=== PATIENT | male | born 1955 | race Caucasian/White ===

== ENCOUNTER → 2020-04-08 | Outpatient (CLI) | payer OTHER ==
[~2020-04-08] MED LIST: BUPR150T6 PO; LOSA100T14 PO; METO25TA91 PO; PANT40TA5 PO; TERA2CAP3 PO; TRAZ-175 PO; ZOLP10TA PO
== END | disposition home or self-care (01) ==
LOC: CFH 08:16
PROVIDERS: ATTEND Nurse Practitioner Family
DX: M51.36 Other intervertebral disc degeneration, lumbar region (principal); I70.0 Atherosclerosis of aorta; M25.78 Osteophyte, vertebrae
CPT/HCPCS: 72110

== ENCOUNTER 2020-07-05 11:42 | Outpatient (CLI) | payer OTHER, MEDICARE ==
[~2020-07-05 11:42] MED LIST changes: -PANT40TA5 PO; +PANT40TA6 PO
[2020-07-05] MEDS ORDERED: OMNIPAQUE 350 MG/ML, 100ML BOTTLE ONE (13:39)
== END 2020-07-05 23:59 | disposition home or self-care (01) ==
LOC: RAD 11:42
PROVIDERS: ATTEND Urology
DX: K57.30 Diverticulosis of large intestine without perforation or abscess without bleeding (principal); N28.89 Other specified disorders of kidney and ureter; M51.36 Other intervertebral disc degeneration, lumbar region; Q79.1 Other congenital malformations of diaphragm
CPT/HCPCS: 74170; Q9967

== ENCOUNTER → 2020-07-29 | Outpatient (CLI) | payer MEDICARE ==
[~2020-07-29] MED LIST changes: +TRAZODONE PO
== END | disposition home or self-care (01) ==
LOC: STAR 15:38
PROVIDERS: ATTEND Anesthesiology
DX: Z20.828 Contact with and (suspected) exposure to other viral communicable diseases (principal)
CPT/HCPCS: 87635

== ENCOUNTER 2020-08-12 08:29 | Outpatient (CLI) | payer MEDICARE | END 2020-08-12 23:59 | disposition home or self-care (01) | LOC: RAD 08:29 | PROVIDERS: ATTEND Urology | DX: N40.1 Benign prostatic hyperplasia with lower urinary tract symptoms (principal); C64.2 Malignant neoplasm of left kidney, except renal pelvis; C67.4 Malignant neoplasm of posterior wall of bladder; Z79.899 Other long term (current) drug therapy; Z90.5 Acquired absence of kidney | CPT/HCPCS: 51600; 74430; Q9958 ==

== ENCOUNTER 2020-09-06 14:28 | Emergency (ER) | payer MEDICARE ==
[~2020-09-06] VITALS: Ht 180.3 cm; Wt 96.8 kg
[~2020-09-06 14:28] MED LIST changes: -BUPR150T6 PO; +BUPR150T7 PO
--- NOTE | 2020-09-06 14:41 | NUR ---
quality reviewer: EKG done in triage
--- NOTE | 2020-09-06 15:03 | NUR ---
strong nitric operator note: Pt to room from lobby.
--- NOTE | 2020-09-06 15:36 | NUR ---
ASSUMED CARE OF PATIENT. PT REPORTS SOB AND PALPITATIONS X4 DAYS THAT COME AND GO. WORSE ON EXERTION. PT SEEN BY DR CASH. WEBFED OFFSET PRESS OPERATOR ON. NSR NOTED. VS STABLE. CALL LIGHT IN PLACE. AT BEDSIDE. WILL CONTINUE TO MONITOR.
[2020-09-06 15:43] LABS: BASOPHILS % (AUTO) 0 % (0-1); EOSINOPHILS % (AUTO) 4 % (1-7); LYMPHOCYTES % (AUTO) 15 % (22-44); MEAN CORPUSCULAR HEMOGLOBIN 31.4 pg (27.5-34.5); MEAN CORPUSCULAR HGB CONC 32.9 g/dL (33.2-36.2); MEAN PLATELET VOLUME 9.3 fL (7.4-10.4); MONOCYTES % (AUTO) 10 % (2-9); NEUTROPHILS % (AUTO) 71 % (42-75); PLATELET COUNT 187 x10^3/uL (130-400); RED BLOOD COUNT 3.99 x10^6/uL (4.38-5.82); RED CELL DISTRIBUTION WIDTH 13.7 % (9.4-14.8)
[2020-09-06 15:44] LABS: MD NO
[2020-09-06 15:48] LABS: ALBUMIN 3.8 g/dL (3.4-5.0); ANION GAP 4 mmol/L (5-15); CALCIUM 9.5 mg/dL (8.5-10.1); CHLORIDE 105 mmol/L (98-107)
[2020-09-06 15:54] LABS: TROPONIN I < 0.015 ng/mL (0.000-0.045)
--- NOTE | 2020-09-06 15:57 | NUR ---
PT WATCHING TV IN ROOM. AT BEDSIDE. VS STABLE. NO ACUTE DISTRESS NOTED. CALL LIGHT IN PLACE. WILL CONTINUE TO MONITOR.
--- NOTE | 2020-09-06 16:25 | NUR ---
DR CASH AT BEDSIDE UPDATING PATIENT.
[2020-09-06] MEDS ORDERED: SODIUM CHLORIDE 0.9% 1,000 ML IV ONE (16:30)
[2020-09-06] MEDS ORDERED: SODIUM CHLORIDE FLUSH 10ML SYR IVF ONE (16:30)
[2020-09-06] MEDS ORDERED: MAALOX/HYOSCYAMINE/LIDOCAINE 45 ML BTL ONE (16:45)
[2020-09-06] MEDS ORDERED: MAALOX/HYOSCYAMINE/LIDOCAINE 45 ML BTL PO ONE (17:30)
--- NOTE | 2020-09-06 17:50 | NUR ---
PT BACK FROM RADIOLOGY. NO ACUTE DISTRESS NOTED. AT BEDSIDE. CALL LIGHT IN PLACE. WILL CONTINUE TO MONITOR.
[2020-09-06 18:13] VITALS: BP 102/72
--- NOTE | 2020-09-06 18:13 | NUR ---
pt in room watching tv. vs table. no acute distress noted. call light in place. will continue to monitor.
--- NOTE | 2020-09-06 18:39 | NUR ---
DR CASH HAS UPDATED PATIENT. PATIENT READY FOR DC
== END 2020-09-06 18:42 | disposition home or self-care (01) ==
LOC: ED 16:51
DX: N17.9 Acute kidney failure, unspecified (principal); E86.0 Dehydration; R00.2 Palpitations; R06.00 Dyspnea, unspecified; R06.02 Shortness of breath; R00.0 Tachycardia, unspecified
CPT/HCPCS: 36415; 71045; 78598; 80048; 82040; 83880; 84484; 85025; 85379; 93005; 96360; 96361; 99285; A9540; A9558; J7030

== ENCOUNTER 2020-12-23 06:10 | Day surgery (SDC) | payer MEDICARE ==
[~2020-12-23 06:10] MED LIST changes: +BUPR150T22 PO; -BUPR150T7 PO
[2020-12-23 06:50] VITALS: BP 104/74
[2020-12-23] MEDS ORDERED: MIDAZOLAM 1 MG/ML, 5ML ONE (07:29)
[2020-12-23] MEDS ORDERED: FENTANYL PF 100 MCG/2ML ONE (07:29)
[2020-12-23] MEDS ORDERED: FLUMAZENIL 0.1 MG/1 ML, 5ML ONE (07:30)
[2020-12-23] MEDS ORDERED: NALOXONE 1 MG/ML, 2ML ONE (07:30)
[2020-12-23 07:31] LABS: INTERNATIONAL NORMALIZED RATIO 1.04 (0.93-1.1); PROTHROMBIN TIME 11.1 Seconds (9.6-11.5)
== END 2020-12-23 10:13 | disposition home or self-care (01) ==
LOC: OUT 06:10
PROVIDERS: ATTEND Internal Medicine Hematology & Oncology
DX: K76.89 Other specified diseases of liver (principal); C22.7 Other specified carcinomas of liver; M51.36 Other intervertebral disc degeneration, lumbar region; M48.061 Spinal stenosis, lumbar region without neurogenic claudication; I42.9 Cardiomyopathy, unspecified; I12.9 Hypertensive chronic kidney disease with stage 1 through stage 4 chronic kidney disease, or unspecified chronic kidney disease; N18.9 Chronic kidney disease, unspecified; Z79.899 Other long term (current) drug therapy; Z87.891 Personal history of nicotine dependence; Z90.5 Acquired absence of kidney
CPT/HCPCS: 36415; 47000; 72131; 76942; 85610; 88307; 88333; 88341; 88342; 99156; 99157; J2250; J3010; J2310

== ENCOUNTER → 2021-02-04 | Outpatient (CLI) | payer MEDICARE | END | disposition home or self-care (01) | LOC: RAD 08:49 | PROVIDERS: ATTEND Internal Medicine Hematology & Oncology | DX: C78.7 Secondary malignant neoplasm of liver and intrahepatic bile duct (principal); C65.2 Malignant neoplasm of left renal pelvis; R16.1 Splenomegaly, not elsewhere classified; N28.1 Cyst of kidney, acquired; K80.20 Calculus of gallbladder without cholecystitis without obstruction; Z90.5 Acquired absence of kidney | CPT/HCPCS: 76700 ==

== ENCOUNTER 2021-02-13 06:43 | Emergency (ER) | payer MEDICARE ==
[~2021-02-13] VITALS: Ht 180.3 cm; Wt 91.8 kg
[~2021-02-13 06:43] MED LIST changes: +HYDR-3241 PO; +HYDR-63 PO; +METH100V PO; +METO25TA35 PO; +ONDA4TAB7 PO; +OXYC10TA6 PO; +PROC10TA78 PO; +TAMS-11 PO
--- NOTE | 2021-02-13 06:56 | NUR ---
pt BIBA for chief complaint of dizziness and loss of balance, pt started chemo on thrusday for liver and bladder cancer, pt has a history of [place] and stated that he usually has abnormal EKG and is usually sinus tach, pt states he has also been constipated for the last five days, pts FS was 134 in the field, pt currently a/ox4, NAD, at bedside .
[2021-02-13] MEDS ORDERED: SODIUM CHLORIDE FLUSH 10ML SYR IVF ONE (07:00)
[2021-02-13] MEDS ORDERED: SODIUM CHLORIDE 0.9% 1,000ML IVBOLUS ONE (07:00)
[2021-02-13 07:07] LABS: MEAN PLATELET VOLUME 9.1 fL (7.4-10.4); PLATELET COUNT 239 x10^3/uL (130-400); RED BLOOD COUNT 4.22 x10^6/uL (4.38-5.82); RED CELL DISTRIBUTION WIDTH 13.4 % (9.4-14.8)
--- NOTE | 2021-02-13 07:09 | NUR ---
PT TO RADIOLOGY
--- NOTE | 2021-02-13 07:17 | NUR ---
PT BACK FROM RADIOLOGY, CONNECTED TO ALL MONITORS. CALL LIGHT WITHIN REACH. COMFORT MEASURES PROVIDED.
[2021-02-13 07:18] LABS: ALANINE AMINOTRANSFERASE 157 U/L (12-78); ALBUMIN 2.7 g/dL (3.4-5.0); ANION GAP 10 mmol/L (5-15); CALCIUM 8.5 mg/dL (8.5-10.1); CHLORIDE 104 mmol/L (98-107); CREATININE 2.54 mg/dL (0.7-1.3)
[2021-02-13 07:20] LABS: ALKALINE PHOSPHATASE 393 U/L (45-117); BILIRUBIN,TOTAL 1.4 mg/dL (0.2-1.0); TOTAL PROTEIN 7.2 g/dL (6.4-8.2)
[2021-02-13 07:32] LABS: <PLATELET ESTIMATE> ADEQUATE; <PLT MORPHOLOGY> NORMAL PLT MORPH; <RBC MORPHOLOGY> NORMAL; BANDS%(MANUAL) 1 % (0-7); LYMPH#(MANUAL) 0.21 x10^3/uL (1-3.4); LYMPHS% (MANUAL) 2 % (22-44); MONOS% (MANUAL) 1 % (2-9); SEG#(MANUAL) 9.89 x10^3/uL (1.8-6.8); SEGS% (MANUAL) 96 % (42-75)
--- NOTE | 2021-02-13 08:15 | NUR ---
PT SITTING ON ALEXANDER HOPKINS/KHLOES. AT BS. CALL LIGHT WITHIN REACH. COMFORT MEASURES PROVIDED.
[2021-02-13 08:52] LABS: MICROSCOPIC INDICATED
[2021-02-13] MEDS ORDERED: PINK LADY ENEMA 490 ML BOTTLE PR ONE (09:00)
[2021-02-13] MEDS ORDERED: LACTATED RINGERS 1,000 ML IV ONE (09:00)
--- NOTE | 2021-02-13 09:32 | NUR ---
PT SITTING ON ALEXANDER HOPKINS/MARCI. AT BS. CALL LIGHT WITHIN REACH. PT UPDATED ON POC
--- NOTE | 2021-02-13 10:13 | NUR ---
PT TOELRATED PINK LADY ENEMA WELL. VSS/NADN. CALL LIGHT WITHIN REACH
[2021-02-13 10:43] VITALS: BP 104/76
--- NOTE | 2021-02-13 11:13 | NUR ---
Patient given discharge instructions and RX, they have confirmed that they understand the instructions.
== END 2021-02-13 11:33 | disposition home or self-care (01) ==
LOC: ED 08:48
DX: R42 Dizziness and giddiness (principal); E86.0 Dehydration; K59.00 Constipation, unspecified; N28.9 Disorder of kidney and ureter, unspecified; I45.19 Other right bundle-branch block; Z85.51 Personal history of malignant neoplasm of bladder
CPT/HCPCS: 36415; 74018; 80053; 81001; 83735; 85025; 93005; 96360; 96361; 99285; J7030; J7120

== ENCOUNTER 2021-03-18 07:49 | Outpatient (CLI) | payer MEDICARE | END 2021-03-18 23:59 | disposition home or self-care (01) | LOC: ROC 07:49 | PROVIDERS: ATTEND Radiology Radiation Oncology | DX: C78.7 Secondary malignant neoplasm of liver and intrahepatic bile duct (principal); N18.30 Chronic kidney disease, stage 3 unspecified; I50.9 Heart failure, unspecified; I95.1 Orthostatic hypotension; R42 Dizziness and giddiness; Z87.891 Personal history of nicotine dependence; Z85.830 Personal history of malignant neoplasm of bone; Z79.899 Other long term (current) drug therapy | CPT/HCPCS: 99214; G0463 ==

== ENCOUNTER 2021-04-18 16:40 | Inpatient (IN) | payer MEDICARE ==
[~2021-04-18] VITALS: Ht 182.9 cm; Wt 88.1 kg
[2021-04-18 17:36] LABS: BASOPHILS % (AUTO) 1 % (0-1); EOSINOPHILS % (AUTO) 0 % (1-7); LYMPHOCYTES % (AUTO) 4 % (22-44); MEAN CORPUSCULAR HEMOGLOBIN 32.9 pg (27.5-34.5); MEAN CORPUSCULAR HGB CONC 34.1 g/dL (33.2-36.2); MEAN PLATELET VOLUME 8.9 fL (7.4-10.4); MONOCYTES % (AUTO) 9 % (2-9); NEUTROPHILS % (AUTO) 87 % (42-75); PLATELET COUNT 197 x10^3/uL (130-400); RED BLOOD COUNT 3.99 x10^6/uL (4.38-5.82); RED CELL DISTRIBUTION WIDTH 15.1 % (9.4-14.8)
[2021-04-18] MEDS ORDERED: ONDANSETRON 2MG/ML, 2ML ONE ×2 (17:47→20:00)
[2021-04-18 17:48] LABS: ALKALINE PHOSPHATASE 360 U/L (45-117); BILIRUBIN,TOTAL 7.8 mg/dL (0.2-1.0); TOTAL PROTEIN 6.9 g/dL (6.4-8.2)
[2021-04-18] MEDS ORDERED: MORPHINE SULFATE 4 MG/ML, 1ML ONE (17:48)
--- NOTE | 2021-04-18 17:57 | NUR ---
[facility] UA OBTAINED-SENT TO LAB EMS LITER COMPLETE, 2ND LITER ADMINISTERED PER EMAR [facility] FOR BACK PAIN/NAUSEA
[2021-04-18] MEDS ORDERED: SODIUM CHLORIDE FLUSH 10ML SYR IVF ONE (18:00)
[2021-04-18] MEDS ORDERED: ONDANSETRON 2MG/ML, 2ML IVPush ONE ×2 (18:00→20:30)
[2021-04-18] MEDS ORDERED: MORPHINE SULFATE 4 MG/ML, 1ML IVPush ONE (18:00)
[2021-04-18] MEDS ORDERED: SODIUM CHLORIDE 0.9%, 500ML IVBOLUS ONE (18:00)
[2021-04-18 18:18] LABS: ALANINE AMINOTRANSFERASE 108 U/L (12-78); ANION GAP 5 mmol/L (5-15); CALCIUM 9.1 mg/dL (8.5-10.1); CHLORIDE 95 mmol/L (98-107); CREATININE 2.68 mg/dL (0.7-1.3)
[2021-04-18 18:18] LABS: MICROSCOPIC INDICATED
[2021-04-18 18:19] LABS: ALBUMIN 1.8 g/dL (3.4-5.0)
[2021-04-18] MEDS ORDERED: INSULIN REGULAR 100 UNITS/ML, 3ML VIAL IVPush ONE (19:00)
[2021-04-18] MEDS ORDERED: DEXTROSE 50%, 50ML SYRINGE IVPush ONE (19:00)
[2021-04-18] MEDS ORDERED: CALCIUM CHLORIDE 10%, 10ML SYR IVPush ONE (19:00)
[2021-04-18] MEDS ORDERED: SODIUM ZIRCONIUM CYCLOSILICATE 10 GM PO ONE (19:00)
[2021-04-18] MEDS ORDERED: CALCIUM CHLORIDE 10%, 10ML SYR ONE (19:15)
[2021-04-18] MEDS ORDERED: DEXTROSE 50%, 50ML SYRINGE ONE (19:16)
[2021-04-18] MEDS ORDERED: INSULIN SINGLE DOSE, ER ONE (19:16)
--- NOTE | 2021-04-18 19:23 | NUR ---
DR. MENDEZ AT BEDSIDE TO ADMIT ULTRASOUND AT BEDSIDE MEDICATED PER EMAR WITH HYPERKALEMIA MEDS (EXCEPT LOKEMA-ORDERED FROM PHARMACY)
--- NOTE | 2021-04-18 20:10 | NUR ---
POST HYPERKALEMIA FSBS 1245. PATIENT EATING (OK PER DR. MENDEZ). INPATIENT RN MADE AWARE
[2021-04-18] MEDS ORDERED: HYDR-826 PO (20:45)
[2021-04-18] MEDS ORDERED: MAGN400O7 PO (20:45)
[2021-04-18] MEDS ORDERED: [UNRECOGNIZED DRUG - OTHER] (20:45)
[2021-04-18] MEDS ORDERED: SERT-237 PO (20:45)
[2021-04-18] MEDS ORDERED: DOCU-131 PO (20:45)
[2021-04-18] MEDS ORDERED: METH100V PO (20:45)
[2021-04-18] MEDS ORDERED: TAMS-11 PO (20:45)
[2021-04-18] MEDS ORDERED: MELA5TAB22 PO (20:45)
[2021-04-18] MEDS ORDERED: PROMETHAZINE 25 MG/ML, 1ML IM PRN (21:00)
[2021-04-18 21:02] VITALS: BP 95/70
[2021-04-18 21:19] LABS: INTERNATIONAL NORMALIZED RATIO 1.19 (0.93-1.1); PROTHROMBIN TIME 12.6 Seconds (9.6-11.5)
[2021-04-18] MEDS: CEFTRIAXONE 1,000 MG in DEXTROSE 5% 50 ML IVPB SCH (22:23)
[2021-04-18] MEDS: HEPARIN 5,000 UNITS/ML, 1ML SQ SCH (22:23)
[2021-04-18] MEDS: LACTATED RINGERS 1,000 ML IV SCH (22:23)
[2021-04-18 22:54] LABS: ANION GAP 7 mmol/L (5-15); CALCIUM 9.4 mg/dL (8.5-10.1); CHLORIDE 96 mmol/L (98-107)
[2021-04-18] MEDS ORDERED: ALBUTEROL/IPRATROPIUM 2.5MG/0.5MG, 3 ML NPPB PRN (23:00)
[2021-04-19 00:08] VITALS: BP 96/72
[2021-04-19] MEDS ORDERED: OXYcodone IR 5MG TABLET ONE (04:33)
[2021-04-19] MEDS: OXYcodone IR 5MG TABLET PO PRN ×2 (04:35→21:32)
[2021-04-19] MEDS: HEPARIN 5,000 UNITS/ML, 1ML SQ SCH ×3 (05:40→22:02)
[2021-04-19 05:49] LABS: BASOPHILS % (AUTO) 0 % (0-1); EOSINOPHILS % (AUTO) 0 % (1-7); LYMPHOCYTES % (AUTO) 3 % (22-44); MEAN CORPUSCULAR HEMOGLOBIN 33.1 pg (27.5-34.5); MEAN CORPUSCULAR HGB CONC 34.3 g/dL (33.2-36.2); MEAN PLATELET VOLUME 8.7 fL (7.4-10.4); MONOCYTES % (AUTO) 9 % (2-9); NEUTROPHILS % (AUTO) 87 % (42-75); PLATELET COUNT 194 x10^3/uL (130-400); RED BLOOD COUNT 4.03 x10^6/uL (4.38-5.82); RED CELL DISTRIBUTION WIDTH 15.1 % (9.4-14.8)
[2021-04-19 06:02] LABS: ALBUMIN 1.8 g/dL (3.4-5.0); ANION GAP 6 mmol/L (5-15); CALCIUM 9.5 mg/dL (8.5-10.1); CHLORIDE 97 mmol/L (98-107)
[2021-04-19 06:07] LABS: ALANINE AMINOTRANSFERASE 100 U/L (12-78); ALKALINE PHOSPHATASE 344 U/L (45-117); BILIRUBIN,TOTAL 8.3 mg/dL (0.2-1.0); CREATININE 2.37 mg/dL (0.7-1.3); TOTAL PROTEIN 6.9 g/dL (6.4-8.2)
[2021-04-19 06:53] VITALS: BP 99/74
[2021-04-19] MEDS: DOCUSATE 100 MG CAPSULE PO SCH (08:34)
[2021-04-19] MEDS: PANTOPRAZOLE 20MG TABLET PO SCH (08:34)
[2021-04-19] MEDS: SERTRALINE 50MG TABLET PO SCH (08:34)
[2021-04-19] MEDS: ONDANSETRON 2MG/ML, 2ML IVPush PRN ×2 (08:34→21:17)
[2021-04-19] MEDS: METHOCARBAMOL 500 MG TABLET PO PRN ×2 (08:34→21:32)
[2021-04-19] MEDS: TAMSULOSIN 0.4 MG CAP.ER.24H PO SCH (08:34)
[2021-04-19] MEDS: TEMPLATE NON-FORMULARY MED. (Bupropion Hcl** (Bupropion Xl**) 150 MG) HOMEMEDPO SCH (08:37)
[2021-04-19] MEDS: LACTATED RINGERS 1,000 ML IV SCH (11:26)
[2021-04-19] MEDS: LORazepam 2 MG/ML, 1ML IVPush PRN (11:31)
[2021-04-19] MEDS ORDERED: SODIUM POLYSTYRENE SULFONATE ORAL SUSP PO ONE (14:30)
[2021-04-19] MEDS ORDERED: SODIUM POLYSTYRENE SULFONATE ORAL SUSP PO PRN (14:30)
[2021-04-19 15:11] VITALS: BP 91/71
[2021-04-19 18:53] VITALS: BP 97/72
[2021-04-19] MEDS: TRAZODONE 100MG TABLET PO SCH (21:17)
[2021-04-19] MEDS: CEFTRIAXONE 1,000 MG in DEXTROSE 5% 50 ML IVPB SCH (21:17)
[2021-04-19 21:50] VITALS: BP 110/81
[2021-04-20 00:56] VITALS: BP 93/67
[2021-04-20] MEDS: ONDANSETRON 2MG/ML, 2ML IVPush PRN (04:02)
[2021-04-20] MEDS: HEPARIN 5,000 UNITS/ML, 1ML SQ SCH ×2 (05:07→17:07)
[2021-04-20 05:42] LABS: ANION GAP 9 mmol/L (5-15); CALCIUM 9.4 mg/dL (8.5-10.1); CHLORIDE 95 mmol/L (98-107); CREATININE 2.45 mg/dL (0.7-1.3)
[2021-04-20 06:49] VITALS: BP 108/83
[2021-04-20] MEDS ORDERED: SODIUM POLYSTYRENE SULFONATE ORAL SUSP PO ONE (07:00)
[2021-04-20] MEDS: PROMETHAZINE 25 MG/ML, 1ML IM PRN (08:57)
[2021-04-20] MEDS: TEMPLATE NON-FORMULARY MED. (Bupropion Hcl** (Bupropion Xl**) 150 MG) HOMEMEDPO SCH (09:00)
[2021-04-20] MEDS ORDERED: METOCLOPRAMIDE 5 MG/ML, 2ML IVPush SCH (09:00)
[2021-04-20] MEDS: METHOCARBAMOL 500 MG TABLET PO PRN (09:25)
[2021-04-20] MEDS: OXYcodone IR 5MG TABLET PO PRN ×2 (09:26→21:35)
[2021-04-20] MEDS: SODIUM CHLORIDE 0.9% 1,000 ML IV SCH (09:30)
[2021-04-20] MEDS: TAMSULOSIN 0.4 MG CAP.ER.24H PO SCH (10:49)
[2021-04-20] MEDS: LORazepam 2 MG/ML, 1ML IVPush PRN (10:49)
[2021-04-20] MEDS: SERTRALINE 50MG TABLET PO SCH (10:49)
[2021-04-20] MEDS: DOCUSATE 100 MG CAPSULE PO SCH (10:49)
[2021-04-20] MEDS: PANTOPRAZOLE 20MG TABLET PO SCH (10:49)
[2021-04-20 12:15] VITALS: BP 100/71
[2021-04-20] MEDS: BISACODYL 10 MG SUPP PR SCH (15:00)
[2021-04-20 18:44] VITALS: BP 90/66
[2021-04-20] MEDS: CEFTRIAXONE 1,000 MG in DEXTROSE 5% 50 ML IVPB SCH (21:21)
[2021-04-20] MEDS: TRAZODONE 100MG TABLET PO SCH (21:21)
[2021-04-21 00:07] VITALS: BP 97/69
[2021-04-21] MEDS: METHOCARBAMOL 500 MG TABLET PO PRN ×2 (00:23→23:32)
[2021-04-21] MEDS: HEPARIN 5,000 UNITS/ML, 1ML SQ SCH ×3 (01:07→17:23)
[2021-04-21] MEDS: OXYcodone IR 5MG TABLET PO PRN ×3 (05:48→23:32)
[2021-04-21 08:10] VITALS: BP 93/67
[2021-04-21] MEDS: TAMSULOSIN 0.4 MG CAP.ER.24H PO SCH (08:30)
[2021-04-21] MEDS: DOCUSATE 100 MG CAPSULE PO SCH (08:30)
[2021-04-21] MEDS: SERTRALINE 50MG TABLET PO SCH (08:30)
[2021-04-21] MEDS: PANTOPRAZOLE 20MG TABLET PO SCH (08:30)
[2021-04-21] MEDS: BISACODYL 10 MG SUPP PR SCH (09:00)
[2021-04-21] MEDS: TEMPLATE NON-FORMULARY MED. (Bupropion Hcl** (Bupropion Xl**) 150 MG) HOMEMEDPO SCH (09:00)
[2021-04-21 09:52] LABS: ANION GAP 13 mmol/L (5-15); CHLORIDE 96 mmol/L (98-107); CREATININE 3.14 mg/dL (0.7-1.3)
[2021-04-21] MEDS: PROMETHAZINE 25 MG/ML, 1ML IM PRN (11:52)
[2021-04-21 12:23] VITALS: BP 94/69
[2021-04-21] MEDS ORDERED: LORazepam 2 MG/ML, 1ML IVPush PRN (12:30)
[2021-04-21] MEDS: SODIUM CHLORIDE 0.9% 1,000 ML IV SCH ×2 (15:04)
[2021-04-21 18:19] VITALS: BP 99/70
[2021-04-21] MEDS: TRAZODONE 100MG TABLET PO SCH (21:20)
[2021-04-21] MEDS: CEFTRIAXONE 1,000 MG in DEXTROSE 5% 50 ML IVPB SCH (21:22)
[2021-04-21] MEDS ORDERED: ALBUTEROL-IPRATROPIUM MDI INH INH PRN (23:00)
[2021-04-22 01:10] VITALS: BP 96/72
[2021-04-22] MEDS: HEPARIN 5,000 UNITS/ML, 1ML SQ SCH ×2 (01:10→08:28)
[2021-04-22] MEDS ORDERED: SODIUM CHLORIDE NASAL SPRAY 45ML BOTTLE NAS PRN (02:00)
[2021-04-22] MEDS: SODIUM CHLORIDE 0.9% 1,000 ML IV SCH (03:34)
[2021-04-22 05:43] LABS: CHLORIDE 96 mmol/L (98-107)
[2021-04-22 05:49] LABS: ANION GAP 12 mmol/L (5-15); CALCIUM 8.7 mg/dL (8.5-10.1); CREATININE 3.08 mg/dL (0.7-1.3)
[2021-04-22] MEDS ORDERED: ALPR0.5T93 PO (07:21)
[2021-04-22 08:05] VITALS: BP 86/62
[2021-04-22] MEDS: TEMPLATE NON-FORMULARY MED. (Bupropion Hcl** (Bupropion Xl**) 150 MG) HOMEMEDPO SCH (08:26)
[2021-04-22] MEDS: TAMSULOSIN 0.4 MG CAP.ER.24H PO SCH (08:27)
[2021-04-22] MEDS: METHOCARBAMOL 500 MG TABLET PO PRN (08:27)
[2021-04-22] MEDS: OXYcodone IR 5MG TABLET PO PRN ×2 (08:27→11:53)
[2021-04-22] MEDS: DOCUSATE 100 MG CAPSULE PO SCH (08:27)
[2021-04-22] MEDS: PANTOPRAZOLE 20MG TABLET PO SCH (08:27)
[2021-04-22] MEDS: BISACODYL 10 MG SUPP PR SCH (08:28)
== END 2021-04-22 12:35 | disposition hospice, home (50) | DRG 682 ==
LOC: ED 20:08 → EDIP 20:43 → 4EST 21:21 → 4NW 04-19 11:40
PROVIDERS: ADMIT Family Medicine; ATTEND Internal Medicine
DX: N17.9 Acute kidney failure, unspecified (principal); E43 Unspecified severe protein-calorie malnutrition; C78.7 Secondary malignant neoplasm of liver and intrahepatic bile duct; N39.0 Urinary tract infection, site not specified; C78.00 Secondary malignant neoplasm of unspecified lung; F11.20 Opioid dependence, uncomplicated; C79.51 Secondary malignant neoplasm of bone; J96.10 Chronic respiratory failure, unspecified whether with hypoxia or hypercapnia; R18.8 Other ascites; I13.0 Hypertensive heart and chronic kidney disease with heart failure and stage 1 through stage 4 chronic kidney disease, or unspecified chronic kidney disease; E87.1 Hypo-osmolality and hyponatremia; N18.4 Chronic kidney disease, stage 4 (severe); E86.0 Dehydration; E87.5 Hyperkalemia; J44.9 Chronic obstructive pulmonary disease, unspecified; D64.9 Anemia, unspecified; E86.1 Hypovolemia; G89.29 Other chronic pain; I27.20 Pulmonary hypertension, unspecified; I50.9 Heart failure, unspecified; K59.00 Constipation, unspecified; K74.60 Unspecified cirrhosis of liver; K80.20 Calculus of gallbladder without cholecystitis without obstruction; N40.0 Benign prostatic hyperplasia without lower urinary tract symptoms; Z51.5 Encounter for palliative care; Z66 Do not resuscitate; Z85.51 Personal history of malignant neoplasm of bladder; Z85.528 Personal history of other malignant neoplasm of kidney; Z87.891 Personal history of nicotine dependence; Z92.21 Personal history of antineoplastic chemotherapy; Z90.5 Acquired absence of kidney; Z90.49 Acquired absence of other specified parts of digestive tract; Z68.26 Body mass index [BMI] 26.0-26.9, adult; M54.5 Low back pain
CPT/HCPCS: 36415; 76705; 76770; 80048; 80053; 80074; 81001; 82140; 82962; 83735; 83880; 84443; 85025; 85610; 87077; 87086; 87521; 93005; 96361; 96374; 96375; G0378; J0696; J1644; J2405; J2550; J1815; J2060; J2270; J7030; J7040; J7120